=== PATIENT | male | born 1945 | race Caucasian/White ===

== ENCOUNTER → 2019-04-19 | Day surgery (SDC) | payer OTHER ==
[2019-04-15 15:24] LABS: BASOPHILS % 0.4 % (0.0-1.0); EOSINOPHILS # (AUTO) 0.2 (0.0-0.4); EOSINOPHILS % 1.9 % (0.0-6.0); HEMATOCRIT 52.1 % (38.2-49.6); LYMPHOCYTES # (AUTO) 1.7 (1.0-3.2); LYMPHOCYTES % 18.2 % (18.0-39.1); MEAN CORPUSCULAR HEMOGLOBIN 30.1 pg (28-32); MEAN CORPUSCULAR HGB CONC 32.6 g/dL (31-35); MEAN CORPUSCULAR VOLUME 92.4 fL (81-99); MONOCYTES # (AUTO) 1.1 (0.2-0.8); MONOCYTES % 11.8 % (4.4-11.3); NEUTROPHILS # (AUTO) 6.2 (2.1-6.9); NEUTROPHILS % 67.3 % (38.7-80.0); PLATELET COUNT 223 x10e3/uL (140-360); RED BLOOD COUNT 5.64 x10e6/uL (4.3-5.7); RED CELL DISTRIBUTION WIDTH 13.2 % (11.7-14.4)
--- NOTE | 2019-04-15 16:17 | Diagnostic Imaging Report ---
Chest, 2 views, 04/15/2019. History: Preop, urologic procedure. Comparison: None available. Findings: The cardiomediastinal silhouette and pulmonary vasculature are within normal limits. There is biapical pleural thickening. The lungs are clear without evidence of consolidation or pleural effusion. There are no acute osseous or soft tissue abnormalities. Impression: No acute cardiopulmonary abnormality. Signed by: Lino Davenport on 04/15/2019 4:14 PM
[~2019-04-19] MED LIST: AMLODIPINE BESYL5 MG PO; CEFTRIAXONE SOD 1 GM/NS 50 ML 50 ML IV ONE; COQ1050 MG PO; DEXAMETHASONE SOD PHOS INJ 4 MG/ML VIAL ONE; FAMOTIDINE20 MG PO; FINASTERIDE5 MG PO; IOPAMIDOL 300MG/ML 50ML INFUS..BTL IV ONE; LIDOCAINE HCL 2% LOCAL INJ 5 ML SDV VIAL INJ ONE; LISINOPRIL-HCT1 EACH PO; LISINOPRIL10 MG PO; LORATADINE10 MG PO; OMEPRAZOLE20 MG PO; ONDANSETRON HCL INJ 2MG/ML 2ML 2 MG/ML VIAL ONE; PRAVASTATIN SOD80 MG PO; PROPOFOL IV EMULSION 10 MG/ML 20 ML VIAL ONE; SEVOFLURANE INHAL SOLN 250 ML PEN BTL ONE; TAMSULOSIN HCL0.4 MG PO
--- OUTSIDE RECORDS SUMMARY | 2019-04-19 07:26 | XMS REPORT ---
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 Allergies, Adverse Reactions, Alerts Allergy Name Allergy Type Status Severity Reaction(s) Onset Date Inactive Date Treating Clinician Comments No Known Allergies DA Active U 2018-03-31 00:00:00 No Known Drug Intolerances DA Active U 2008-09-30 00:00:00 No Known Contrast Allergies DA Active U 2008-09-30 00:00:00 No Known Drug Allergies DA Active U 2008-09-30 00:00:00 No Known Food Allergies DA Active U 2008-09-30 00:00:00 No Known Other Allergies DA Active U 2008-09-30 00:00:00 Medications This patient has no known medications. Results Test Description Test Time Test Comments Text Results Atomic Results Result Comments CHEST 2 VIEWS 2019-04-15 16:13:00 [place] [address] Patient Name: IRA GAMBLE MR #: [id number] : 1945 Age/Sex: 73/M Req #: [id number] [facility] Physician: Ordered by: RONAK VALERIO MD Report #: [id number] Location: OR Room/Bed: Procedure: [id number] DX/CHEST 2 VIEWS Exam Date: 04/15/19 Exam Time: 1543 REPORT STATUS: Signed Chest, 2 views, 04/15/2019. History: Preop, urol ogic procedure. Comparison: None available. Findings: The cardiomediastinal silhouette and pulmonary vasculature are within normal limits. There is biapical pleural thickening. The lungs are clear without evidence of consolidation or pleural effusion. There are no acute osseous or soft tissue abnormalities. Impression: No acute cardiopulmonary abnormality. Signed by: Lino Davenport on 04/15/2019 4:14 PM Dictated By: LINO DAVENPORT MD 13 Transcribed By: DOMINIC on 04/15/191613 COPY TO: RONAK VALERIO MD CHEST 2 VIEWS 2018-04-23 13:18:00 [place] [address] Patient Name: IRA GAMBLE MR #: [id number] : 1945 Age/Sex: 72/M Req #: [id number] Adm Physician: Ordered by: RONAK VALERIO MD Report #: [id number] Location: OR Room/Bed: Procedure: [id number] DX/CHEST 2 VIEWS Exam Date: 04/23/18 Exam Time: 1210 REPORT STATUS: Signed EXAMINATION: CHEST 2 VIEWS INDICATION: Pre-admit COMPARISON: None FINDINGS: TUBES and LINES: None. LUNGS: Lungs are well inflated. Lungs are clear. There is no evidence of pneumonia or pulmonary edema. PLEURA: No pleural effusion or pneumothorax. HEART AND MEDIASTINUM: The cardiomediastinal silhouette is unremarkable. BONES AND SOFT TISSUES: No acute osseous lesion. Soft tissues are unremarkable. UPPER ABDOMEN: No free air under the diaphragm. IMPRESSION: No acute radiographic abnormality. Signed by: Dr. Tonja Solares MD on 04/23/2018 1:27 PM Dictated By: TONJA SOLARES MD [id number] Transcribed By: DOMINIC on 04/23/18 1327 COPY TO: RONAK VALERIO MD
[2019-04-19 10:45] VITALS: BP 120/83
--- NOTE | 2019-04-24 15:00 | Operative Report ---
DATE OF PROCEDURE: 04/19/2019 SURGEON: Lew Moura MD PREOPERATIVE DIAGNOSIS: Severe, recurrent urethral stricture disease. POSTOPERATIVE DIAGNOSIS: Severe, recurrent urethral stricture disease. PROCEDURES: 1. Retrograde urethrocystography. 2. Cystourethroscopy with urethral dilation. ANESTHESIA: General. ESTIMATED BLOOD LOSS: Minimal. COMPLICATIONS: None. INDICATIONS FOR PROCEDURE: Mr. Berg is a 73-year-old male with severe urethral stricture disease presents for dilation. PROCEDURE IN DETAIL: After informed consent was obtained, the patient was taken to the operative suite, he was placed supine on the operating table, underwent general anesthesia by the Anesthesia Service, was placed in dorsal supine position, sterilely prepped and draped in standard fashion for cystoscopy. A 20-gauge IV catheter was injected in the hypospadiac meatus revealing dense urethral stricture disease with moderate difficulty. Filiform was used to access the bladder, this was dilated. A 17-Mauritian cystoscope was then advanced over the filiform to level of bladder showing severe trabeculation, moderate trilobar prostatic hypertrophy. Miner catheter Councill tip was inserted over the catheter cystogram was performed confirming no extravasation. The patient tolerated the procedure well and was transported to the recovery room in excellent condition with no untoward effects noted. Lew Moura MD ES/MODL /[id number]
== END | disposition home or self-care (01) ==
LOC: OR 07:24
PROVIDERS: ATTEND Urology
DX: N35.811 Other urethral stricture, male, meatal (principal); C61 Malignant neoplasm of prostate; N39.0 Urinary tract infection, site not specified; R31.0 Gross hematuria; Q54.9 Hypospadias, unspecified; D07.5 Carcinoma in situ of prostate; R39.14 Feeling of incomplete bladder emptying; N52.9 Male erectile dysfunction, unspecified; R33.8 Other retention of urine; Z01.810 Encounter for preprocedural cardiovascular examination; Z01.812 Encounter for preprocedural laboratory examination; Z01.811 Encounter for preprocedural respiratory examination
CPT/HCPCS: 36415; 52281; 71046; 74450; 85025; 93005; C1758; J0696; J1100; J2001; J2405; J2704; Q9967